=== PATIENT | male | born 1950 | race Caucasian/White ===

== ENCOUNTER 2019-05-22 15:48 | Outpatient (CLI) | payer MEDICARE, OTHER | END 2019-05-22 15:49 | disposition home or self-care (01) | LOC: RT 15:48 | PROVIDERS: ATTEND Internal Medicine Cardiovascular Disease | DX: R55 Syncope and collapse (principal) | CPT/HCPCS: 93005 ==

== ENCOUNTER 2019-05-27 11:06 | Outpatient (CLI) | payer MEDICARE, OTHER ==
--- NOTE | 2019-06-01 06:13 | Ultrasound Report ---
Reason: SYNCOPE Procedure Date: 05/27/2019 Accession Number: [id number] / [id number] Procedure: US - Carotid Doppler Complete CPT Code: Final Report FULL RESULT: EXAM: BILATERAL CAROTID AND VERTEBRAL ARTERY DUPLEX DOPPLER ULTRASOUND: EXAM DATE: 05/27/2019 12:05 PM CLINICAL HISTORY: Syncope. COMPARISON: 05/27/2019 12:11 PM. TECHNIQUE: Grayscale imaging, color Doppler, and duplex spectral Doppler were used to evaluate the carotid and vertebral arteries bilaterally. Static images were obtained. FINDINGS: Right carotid system: Common carotid artery intimal thickening. Small amount of noncalcified plaque in the carotid bulb, without stenosis. No significant plaque or stenosis in the internal carotid artery. Left carotid system: Common carotid artery intimal thickening. Small amount of noncalcified plaque in the carotid bulb without stenosis. No significant plaque or stenosis in the internal carotid arteries. Normal antegrade flow is present in bilateral vertebral arteries. VELOCITIES (cm/s): Doppler Measurements Summary: Right: Mid CCA: PSV 112.6 cm/sec, EDV 16.3 cm/sec. Distal CCA: PSV 72.9 cm/sec, EDV 18.2 cm/sec. Bulb: PSV 45.6 cm/sec, EDV 13.0 cm/sec. Proximal ECA: PSV 104.0 cm/sec, EDV 11.7 cm/sec. Proximal ICA: PSV 62.1 cm/sec, EDV 22.0 cm/sec. Mid ICA: PSV 69.5 cm/sec, EDV 19.7 cm/sec. Distal ICA: PSV 72.4 cm/sec, EDV 24.6 cm/sec. Vertebral Artery: PSV 36.4 cm/sec, EDV 10.5 cm/sec. Right ICA/CCA Ratio: 0.6. Left: Mid CCA: PSV 89.2 cm/sec, EDV 17.6 cm/sec. Distal CCA: PSV 78.5 cm/sec, EDV 19.2 cm/sec. Bulb: PSV 53.4 cm/sec, EDV 12.8 cm/sec. Proximal ECA: PSV 73.4 cm/sec, EDV 10.1 cm/sec. Proximal ICA: PSV 65.7 cm/sec, EDV 21.5 cm/sec. Mid ICA: PSV 74.6 cm/sec, EDV 25.6 cm/sec. Distal ICA: PSV 71.7 cm/sec, EDV 23.2 cm/sec. Vertebral Artery: PSV 38.7 cm/sec, EDV 13.7 cm/sec. Left ICA/CCA Ratio: 0.9. IMPRESSION: 1. No significant plaque and no stenosis in the internal carotid arteries. 2. Normal antegrade flow is present in bilateral vertebral arteries. RADIA
== END 2019-05-27 11:07 | disposition home or self-care (01) ==
LOC: DI 11:06
PROVIDERS: ATTEND Internal Medicine Cardiovascular Disease
DX: R55 Syncope and collapse (principal)
CPT/HCPCS: 93306; 93880

== ENCOUNTER 2023-10-17 10:37 | Emergency (ER) | payer MEDICARE, OTHER ==
--- NOTE | 2023-10-17 11:14 | ED Physician Documentation ---
PD HPI HEAD INJURY - Stated complaint Stated Complaint: GLF,HEAD INJ - Chief complaint Chief Complaint: Trauma Hd/Nk - Additional information Additional information: 72-year-old male with history of type 2 diabetes, Parkinson's, hypercholeste rolemia, BPH presents emergency department for after a mechanical ground-level fall yesterday. Patient says that he has been having increasing falls over the last several months losing his balance more easily. He has a neurologist with [facility] last appointment was a few months ago he says that has been taking his prescribed carbidopa levodopa has not missed any recent doses. Patient says that he lost his balance tripping over a tree branch yesterday fell backwards hit the back of his head on a vase no loss of consciousness no open wounds. Patient says today that he has been having some head throbbing to the right portion of his head and has been having increased dizziness since the fall. No nausea vomiting no new confusion. PD PAST MEDICAL HISTORY - Past Medical History Past Medical History: Yes Cardiovascular: High cholesterol Respiratory: None Neuro: Parkinson's Endocrine/Autoimmune: Type 2 diabetes GI: GERD : Benign prostate hypertrophy HEENT: None, Other Psych: None Musculoskeletal: None Derm: None Other Past Medical History: ear cancer - Past Surgical History Past Surgical History: Yes HEENT: Other - Present Medications Home Medications: Ambulatory Orders Medication Instructions Recorded Confirmed Aspirin EC [Ecotrin] 81 mg PO DAILY 10/17/23 10/17/23 Atorvastatin Calcium 40 mg PO DAILY 10/17/23 10/17/23 Carbidopa/Levodopa 1 each PO TID 10/17/23 10/17/23 [Carbidopa-Levodopa 25-100 Tab] Empagliflozin [Jardiance] 25 mg ORAL DAILY 10/17/23 10/17/23 Insulin Glargine [Lantus Solostar] 24 unit SUBQ DAILY PM 10/17/23 10/17/23 Terazosin [Hytrin] 5 mg ORAL DAILY 10/17/23 10/17/23 metFORMIN [Glucophage] 1,000 mg PO BIDWM 10/17/23 10/17/23 - Allergies Allergies/Adverse Reactions: Allergies Allergy/AdvReac Type Severity Reaction Status Date / Time Penicillins Allergy Rash Verified 10/17/23 10:51 Sulfa (Sulfonamide Allergy Rash Verified 10/17/23 10:51 Antibiotics) - Social History Does the pt smoke?: No Smoking Status: Never smoker Does the pt drink ETOH?: No Does the pt have substance abuse?: No - Immunizations Immunizations are current?: Yes - POLST Patient has POLST: No PD ED PE NORMAL - Vitals Vital signs reviewed: Yes - General General: Alert and oriented X 3, No acute distress, Well developed/nourished - HEENT HEENT: PERRL, EOMI - Neck Neck: No bony TTP, Other (Paraspinal tenderness with palpation mostly to the left portion of neck.) - Back Back: No spinal TTP - Derm Derm: Normal color, Warm and dry, No rash, Other (No ecchymosis no hematoma to the back of head) - Neuro Neuro: Alert and oriented X 3, 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, No motor deficit, No sensory deficit, Normal speech Eye Opening: Spontaneous Motor: Obeys Commands Verbal: Oriented GCS Score: 15 - Psych Psych: Normal mood Results - Vitals Vitals: Vital Signs - 24 hr 10/17/23 10/17/23 10:52 13:47 Temperature 36.4 C L Heart Rate 95 72 Respiratory 16 18 Rate Blood Pressure 117/64 115/72 O2 Saturation 98 100 Oxygen O2 Source Room air - Rads (name of study) Cervical spine CT Relevant Findings:: Final report received, EMP independent interpretation of test, Other (No subluxation or fractures visualized) Head CT without Relevant Findings:: Final report received, EMP independent interpretation of test, Other (No intracranial hemorrhages or abnormalities.) PD Medical Decision Making - ED course ED course: 72-year-old gentleman presents emergency department for head pain after experiencing a ground-level fall yesterday. He has not taken any Tylenol ibuprofen he was given Tylenol here in the emergency department and reports almost immediate alleviation in entire alleviation of pain. Head CT was complete for further evaluation of possible intracranial hemorrhages or abnormalities and no intracranial hemorrhages were visualized on CT. Neck CT was also complete for further evaluation and again no subluxation or fractures are visualized. Patient was informed that he will likely be sore for the next couple days to alternate between Tylenol ibuprofen for pain and discomfort as needed and to follow-up with his primary care provider as well as his physical therapist about his increasing falls recently. Return precautions given patient is safe for discharge at this time. Departure - Departure Disposition: Home, Self Care Clinical Impression: Accident due to mechanical fall without injury Instructions: Falls Risks Prevent, Falls Prevent Exercise Comments: Thank you for trusting us with your care. Completed the head and neck CT and we are not seeing any acute abnormalities or findings. We have given you 1000 mg of Tylenol here in the emergency department you can take 1000 mg of Tylenol every 8 hours for pain, going home if you are still having a headache feel free to take 600 to 800 mg of ibuprofen for any ongoing headache symptoms that you are experiencing. Follow-up with your primary care provider let them know about today's visit and that you have been having increased falls lately as well as her physical therapist. Come back in if you have any worsening or changing symptoms. Wishing you a speedy recovery. Forms: PCP List Discharge Date/Time: 10/17/23 13:47
[2023-10-17] MEDS: ACETAMINOPHEN 500 MG TABLET PO STA (11:33)
--- NOTE | 2023-10-17 13:10 | CT Report ---
PROCEDURE: Head WO INDICATIONS: GLF, head injury TECHNIQUE: Noncontrast 4.5 mm thick angled axial sections acquired from the foramen magnum to the vertex. For r adiation dose reduction, the following was used: automated exposure control, adjustment of mA and/or kV according to patient size. COMPARISON: None. FINDINGS: Image quality: Excellent. CSF spaces: Basal cisterns are patent. No extra-axial fluid collections. Ventricles are normal in size and shape. Brain: No midline shift. No intracranial masses or hemorrhage. Joshua-white matter interface is norm al. Skull and face: Calvarium and visualized facial bones are intact, without suspicious lesions. Sinuses: Visualized sinuses and mastoids are clear. IMPRESSION: No acute intracranial pathology. Reviewed by: Bonilla Bryan MD on 10/17/2023 1:08 PM PDT Approved by: Bonilla Bryan MD on 10/17/2023 1:08 PM PDT Station ID: [id number]
--- NOTE | 2023-10-17 13:13 | CT Report ---
PROCEDURE: Cervical Spine WO INDICATIONS: GLF, head pain TECHNIQUE: Noncontrast 3 mm thick sections acquired from the skull base to the T4 level. Sagittal and coronal r eformats were then constructed. For radiation dose reduction, the following was used: automated exp osure control, adjustment of mA and/or kV according to patient size. COMPARISON: CT head from the same date. FINDINGS: Image quality: Excellent. Bones: No fractures or dislocations. Visualized superior ribs are intact. Relatively mild cervical spondylitic change. Findings include bilateral bony foraminal narrowing at C3-C4, right foraminal na rrowing at C4-C5, and mild bilateral foraminal narrowing at C5-C6. Soft tissues: Prevertebral soft tissues are normal in thickness. No paravertebral hematomas. No ap ical pneumothoraces. IMPRESSION: 1. No acute cervical fracture or dislocation. 2. Relatively mild cervical spondylitic change. Reviewed by: Bonilla Bryan MD on 10/17/2023 1:11 PM PDT Approved by: Bonilla Bryan MD on 10/17/2023 1:11 PM PDT Station ID: [id number]
[2023-10-17 13:53] VITALS: BP 115/72; O2SAT 100
== END 2023-10-17 13:47 | disposition home or self-care (01) ==
LOC: ED 10:37
DX: R51.9 Headache, unspecified (principal); W01.0XXA Fall on same level from slipping, tripping and stumbling without subsequent striking against object, initial encounter; E11.9 Type 2 diabetes mellitus without complications; G20.A1 Parkinson's disease without dyskinesia, without mention of fluctuations; E78.00 Pure hypercholesterolemia, unspecified; N40.0 Benign prostatic hyperplasia without lower urinary tract symptoms; Z79.4 Long term (current) use of insulin; Z79.899 Other long term (current) drug therapy
CPT/HCPCS: 70450; 72125; 99283; 99284; A9270